=== PATIENT | male | born 1945 | race Asian ===

== ENCOUNTER → 2018-08-08 | Outpatient (CLI) | payer MEDICARE, OTHER | END | disposition home or self-care (01) | LOC: RADPV 13:51 | PROVIDERS: ATTEND Family Medicine | DX: I70.0 Atherosclerosis of aorta (principal); J18.9 Pneumonia, unspecified organism ==

== ENCOUNTER → 2020-06-22 | Outpatient (CLI) | payer MEDICARE, OTHER | END | disposition home or self-care (01) | LOC: RADPV 11:21 | PROVIDERS: ATTEND Family Medicine | DX: J98.11 Atelectasis (principal) | CPT/HCPCS: 71111 ==

== ENCOUNTER → 2020-07-21 | Outpatient (CLI) | payer MEDICARE, OTHER | END | disposition home or self-care (01) | LOC: LABPV 12:14 | PROVIDERS: ATTEND Family Medicine | DX: I70.0 Atherosclerosis of aorta (principal); R07.9 Chest pain, unspecified; Z87.828 Personal history of other (healed) physical injury and trauma | CPT/HCPCS: 71046; 71046-TC ==

== ENCOUNTER → 2023-02-07 | Outpatient (CLI) | payer MEDICARE, OTHER | END | disposition home or self-care (01) | LOC: RADMN 11:34 | PROVIDERS: ATTEND Family Medicine | DX: J18.9 Pneumonia, unspecified organism (principal); I70.0 Atherosclerosis of aorta; R60.0 Localized edema; R05.9 Cough, unspecified | CPT/HCPCS: 71046 ==